=== PATIENT | female | born 2000 | race Caucasian/White ===

== ENCOUNTER 2024-08-09 08:53 | Outpatient (CLI) | payer SELFPAY ==
[2024-08-09 13:23] LABS: GC DNA Amplified* NOT DETECTED (No Detected)
[2024-08-09 13:53] LABS: Chlamydia DNA Amplified* DETECTED (No Detected)
== END 2024-08-09 08:54 | disposition home or self-care (01) ==
PROVIDERS: Visit Provider Registered Nurse
DX: Z11.3 Encounter for screening for infections with a predominantly sexual mode of transmission (principal); Z12.4 Encounter for screening for malignant neoplasm of cervix
CPT/HCPCS: 87491; 87591; 87624; 87625; 88141; 88142